=== PATIENT | female | born 1975 | race Caucasian/White ===

== ENCOUNTER 2016-06-22 19:19 | Emergency (ER) | payer SELFPAY ==
[~2016-06-22] VITALS: Ht 157.5 cm; Wt 98.0 kg
[~2016-06-22 19:19] MED LIST: ALOG1TAB7 PO; BUTA1CAP29 PO; DULO20CA PO; LISI10TA2 PO; METF500T4 PO; ONDA4TAB7 PO; PRAV20TA2 PO
--- NOTE | 2016-06-22 19:55 | PHYS DOC ---
Past Medical History Past Medical History: Depression, Diabetes-Type II, High Cholesterol, Hypertension Additional Past Medical Histor: Nerve Damage Past Surgical History: Other Additional Past Surgical Histo: "INTERNAL HEART MONITOR" Alcohol Use: None Drug Use: None Adult General Chief Complaint Chief Complaint: NAUSEA/VOMITING/DIARRHA HPI HPI Patient is a 40 year old female who presents with nausea/vomiting/diarrhea. Patient reports symptoms started this morning. She estimates she has vomited and had diarrhea a couple dozen times over the course the day. She also reports some aching in her back and decreased urine production. No significant abdominal pain, but is uncomfortable from the repeated vomiting and diarrhea. She denies fever. She has tried Zofran (vomited right after taking it) at home as well as Imodium with insufficient relief. Review of Systems Review of Systems Constitutional: Denies fever or chills Eyes: Denies change in visual acuity or eye pain HENT: Denies nasal congestion or sore throat Respiratory: Denies cough or shortness of breath Cardiovascular: Denies chest pain GI: Nausea, vomiting, diarrhea. Denies abdominal pain : Decreased urine output. Denies dysuria or hematuria Musculoskeletal: Back aching Integument: Denies rash or skin lesions Neurologic: Denies headache, focal weakness or sensory changes Current Medications Current Medications Current Medications Medications (Trade) Dose Ordered Sig/Akira Start Time Stop Time Status Last Admin Dose Admin Famotidine (Pepcid) 20 mg 1X ONCE 06/22/16 20:30 06/22/16 20:31 DC 06/22/16 20:13 20 MG Ondansetron HCl (Zofran) 4 mg 1X ONCE 06/22/16 20:30 06/22/16 20:31 DC 06/22/16 20:14 4 MG Ondansetron HCl 4 mg 4 mg 1X ONCE 06/22/16 21:45 06/22/16 21:47 DC 06/22/16 21:45 4 MG Sodium Chloride (Iv Sodium Chloride 0.9% 1000ml Bag) 1,000 ml @ 1,000 mls/hr 1X ONCE 06/22/16 21:45 06/22/16 22:44 DC 06/22/16 21:45 1,000 MLS/HR Allergies Allergies Allergies Coded Allergies Type Severity Reaction Last Updated Verified latex Allergy Intermediate rash 07/04/13 Yes promethazine Allergy Intermediate vein gets rock hard 07/16/15 Yes codeine Adverse Reaction Mild "intensifies pain" 07/16/15 Yes Physical Exam Physical Exam Constitutional: Well developed, well nourished, no acute distress, non-toxic appearance HENT: Normocephalic, atraumatic, bilateral external ears normal Eyes: EOMI, conjunctiva normal, no discharge Neck: Normal range of motion, no stridor Cardiovascular: Tachycardic, regular rhythm, no murmur Lungs & Thorax: Bilateral breath sounds clear to auscultation Abdomen: Bowel sounds normal, soft, non-distended, no focal TTP, no rebound or guarding Skin: Warm, dry, no erythema, no rash Back: No point tenderness, no skin lesion or deformity Extremities: No obvious deformity, no edema Neurologic: Alert and oriented X 3, no gross deficits noted Psychologic: Affect normal, judgement normal, mood normal Current Patient Data Vital Signs Vital Signs Date Time Temp Pulse Resp B/P Pulse Ox O2 Delivery O2 Flow Rate FiO2 06/22/16 23:00 110 123/79 95 Room Air 06/22/16 19:40 99.1 18 99.1 Lab Values Laboratory Tests Test 06/22/16 19:30 06/22/16 20:45 Urine Collection Type Unknown Urine Color Yellow Urine Clarity Clear Urine pH 5.5 Urine Specific [place] >=1.030 Urine Protein 30mg/dL (NEG-TRACE) Urine Glucose (UA) >=1000mg/dL (NEG) Urine Ketones (Stick) 15mg/dL (NEG) Urine Blood Negative (NEG) Urine Nitrite Negative (NEG) Urine Bilirubin Negative (NEG) Urine Urobilinogen Dipstick 0.2mg/dL (0.2 mg/dL) Urine Leukocyte Esterase Negative (NEG) Urine RBC 0/HPF (0-2) Urine WBC 1-4/HPF (0-4) Urine Squamous Epithelial Cells Mod/LPF Urine Bacteria 0/HPF (0-FEW) Urine Mucus Slight/LPF Urine Yeast Present/HPF White Blood Count 6.3x10^3/uL (4.0-11.0) Red Blood Count 5.49x10^6/uL (3.50-5.40) H Hemoglobin 14.0g/dL (12.0-15.5) Hematocrit 43.3% (36.0-47.0) Mean Corpuscular Volume 79fL (79-100) Mean Corpuscular Hemoglobin 26pg (25-35) Mean Corpuscular Hemoglobin Concent 32g/dL (31-37) Red Cell Distribution Width 14.2% (11.5-14.5) Platelet Count 241x10^3/uL (140-400) Neutrophils (%) (Auto) 67% (31-73) Lymphocytes (%) (Auto) 21% (24-48) L Monocytes (%) (Auto) 10% (0-9) H Eosinophils (%) (Auto) 2% (0-3) Basophils (%) (Auto) 1% (0-3) Neutrophils # (Auto) 4.3x10^3uL (1.8-7.7) Lymphocytes # (Auto) 1.3x10^3/uL (1.0-4.8) Monocytes # (Auto) 0.6x10^3/uL (0.0-1.1) Eosinophils # (Auto) 0.1x10^3/uL (0.0-0.7) Basophils # (Auto) 0.0x10^3/uL (0.0-0.2) Sodium Level 132mmol/L (136-145) L Potassium Level 3.4mmol/L (3.5-5.1) L Chloride Level 98mmol/L (98-107) Carbon Dioxide Level 23mmol/L (21-32) Anion Gap 11 (6-14) Blood Urea Nitrogen 12mg/dL (7-20) Creatinine 0.6mg/dL (0.6-1.0) Estimated GFR (Cockcroft-Gault) 111.3 BUN/Creatinine Ratio 20 (6-20) Glucose Level 357mg/dL (70-99) H Calcium Level 8.4mg/dL (8.5-10.1) L Total Bilirubin 0.3mg/dL (0.2-1.0) Aspartate Amino Transferase (AST) 14U/L (15-37) L Alanine Aminotransferase (ALT) 15U/L (14-59) Alkaline Phosphatase 124U/L (46-116) H Total Protein 7.4g/dL (6.4-8.2) Albumin 2.9g/dL (3.4-5.0) L Albumin/Globulin Ratio 0.6 (1.0-1.7) L Lipase 99U/L (73-393) Laboratory Tests 06/22/16 20:45 Laboratory Tests 06/22/16 20:45 EKG EKG EKG (my read): sinus tachycardia, rate 118, normal axis, no acute ST/T changes Radiology/Procedures Radiology/Procedures [] Course & Med Decision Making Course & Med Decision Making Pertinent Labs and Imaging studies reviewed. (See chart for details) Patient is 40-year-old female who presents with nausea/vomiting/diarrhea. Likely viral gastroenteritis. Will check labs, UA to evaluate. IV fluids, nausea medication, Pepcid ordered for relief of symptoms. Labs notable for mild hyponatremia, hypokalemia. Also has hyperglycemia. Urine is concentrated. Second fluid bolus ordered. Discussed results with patient; as she remains mildly tachycardic, I encouraged her to stay in the hospital for further fluids and monitoring. 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 As she has not had any further emesis or diarrhea in the department, and has been able to tolerate PO, I will discharge her home with prescription for ODT Zofran, instructions for close follow-up, return precautions. Dragon Disclaimer Dragon Disclaimer This electronic medical record was generated, in whole or in part, using a voice recognition dictation system. Departure Departure Impression: Primary Impression: Gastroenteritis Disposition: 01 HOME, SELF-CARE Condition: IMPROVED Referrals: NO PCP (PCP) Patient Instructions: Viral Gastroenteritis Additional Instructions: Thank you for allowing us to provide care today in the Emergency Department. Take the provided medication as directed. Drink plenty of fluids while you are sick, such as watered-down Gatorade. Schedule a follow up appointment with a primary care doctor using the provided contact information. Return promptly to the Emergency Department if you develop any new or concerning symptoms. Scripts Ondansetron (Zofran Odt)4 Mg Tab.rapdis1 Tab SL Q8HRS PRN NAUSEA #15 TAB Prov:TAYNA LUZ MD 06/22/16 TANYA LUZ MD Jun 22, 2016 19:55
[2016-06-22 20:04] LABS: BILIRUBIN,URINE NEGATIVE (NEG); GLUCOSE,URINE >=1000 mg/dL (NEG); NITRITE,URINE NEGATIVE (NEG); PH,URINE 5.5; PROTEIN,URINE 30 mg/dL (NEG-TRACE); UROBILINOGEN,URINE 0.2 mg/dL (0.2 mg/dL)
[2016-06-22 20:10] LABS: BACTERIA,URINE 0 /HPF (0-FEW); RBC,URINE 0 /HPF (0-2); SQUAMOUS EPITHELIAL CELL,UR MOD /LPF; YEAST,URINE PRESENT /HPF
[2016-06-22] MEDS ORDERED: ONDANSETRON PF 4 MG/2 ML VIAL. IV ONE ×2 (20:30→21:45)
[2016-06-22] MEDS ORDERED: FAMOTIDINE 20 MG/2 ML VIAL IVP ONE (20:30)
[2016-06-22] MEDS ORDERED: IV NORMAL SALINE 1000ML BAG 1,000 ML IV SCH (20:30)
[2016-06-22 21:02] LABS: CALCIUM 8.4 mg/dL (8.5-10.1); CREATININE 0.6 mg/dL (0.6-1.0); GFR 111.3; POTASSIUM 3.4 mmol/L (3.5-5.1)
[2016-06-22 21:07] LABS: ALBUMIN 2.9 g/dL (3.4-5.0); ALBUMIN/GLOBULIN RATIO 0.6 (1.0-1.7); TOTAL BILIRUBIN 0.3 mg/dL (0.2-1.0); TOTAL PROTEIN 7.4 g/dL (6.4-8.2)
[2016-06-22 21:08] LABS: BASO % 1 % (0-3); EOS % 2 % (0-3); HEMATOCRIT 43.3 % (36.0-47.0); LYMPH # 1.3 x10^3/uL (1.0-4.8); LYMPH % 21 % (24-48); MEAN CORPUSCULAR HEMOGLOBIN 26 pg (25-35); MEAN CORPUSCULAR HGB CONC 32 g/dL (31-37); MEAN CORPUSCULAR VOLUME 79 fL (79-100); MONO % 10 % (0-9); NEUT % 67 % (31-73); PLATELET COUNT 241 x10^3/uL (140-400); RED BLOOD COUNT 5.49 x10^6/uL (3.50-5.40); RED CELL DISTRIBUTION WIDTH 14.2 % (11.5-14.5); WHITE BLOOD COUNT 6.3 x10^3/uL (4.0-11.0)
[2016-06-22] MEDS ORDERED: IV NORMAL SALINE 1000ML BAG 1,000 ML IV ONE (21:45)
[2016-06-22 23:00] VITALS: BP 123/79
[2016-06-22] MEDS ORDERED: ONDA4TAB10 SL (23:14)
--- NOTE | 2016-06-23 06:13 | EKG ---
[facility] [address] [place] [address] Test Date: 2016-06-22 Test Time: 19:40:35 Pat Name: ARIEL GARCIA Department: Room: Gender: F H[employer] R Tech: : [id number] Requested By: TANYA LUZ Order Number: [id number] Reading MD: Madison Chin Measurements Intervals [place] Rate: 118 P: 40 TX: 134 QRS: 19 QRSD: 90 T: 62 QT: 334 QTc: 470 Interpretive Statements SINUS TACHYCARDIA LEFT ATRIAL ABNORMALITY Electronically Signed On 06-25-2016 10:43:55 CDT by Madison Chin
== END 2016-06-22 23:27 | disposition home or self-care (01) ==
LOC: ER 19:19
DX: K52.9 Noninfective gastroenteritis and colitis, unspecified (principal); E11.9 Type 2 diabetes mellitus without complications; E78.00 Pure hypercholesterolemia, unspecified; I10 Essential (primary) hypertension; Z88.5 Allergy status to narcotic agent; Z88.8 Allergy status to other drugs, medicaments and biological substances; Z91.040 Latex allergy status
CPT/HCPCS: 36415; 80053; 81001; 81025; 83690; 85027; 93005; 96361; 96374; 96375; 96376; 99285; J2405; J7030; S0028

== ENCOUNTER 2017-06-11 20:00 | Emergency (ER) | payer SELFPAY ==
[2017-06-11] MEDS: LIDOCAINE WITH 8.4% SOD BICARB 3 ML DISP.SYRIN. INJ (20:30)
== END 2017-06-11 21:38 | disposition home or self-care (01) ==
LOC: ER 20:00
DX: L02.811 Cutaneous abscess of head [any part, except face] (principal); L03.811 Cellulitis of head [any part, except face]; F32.9 Major depressive disorder, single episode, unspecified; E11.9 Type 2 diabetes mellitus without complications; E78.00 Pure hypercholesterolemia, unspecified; I10 Essential (primary) hypertension; Z91.040 Latex allergy status; Z88.5 Allergy status to narcotic agent; Z88.8 Allergy status to other drugs, medicaments and biological substances
CPT/HCPCS: 10060; 99283

== ENCOUNTER 2017-10-04 18:53 | Emergency (ER) | payer OTHER ==
[2017-10-04] MEDS: ALBUTEROL SULFATE 2.5 MG/3 ML NEBU. NEB (19:56)
== END 2017-10-04 20:40 | disposition home or self-care (01) ==
LOC: ER 20:40
DX: R05 Cough (principal); R09.81 Nasal congestion; E78.00 Pure hypercholesterolemia, unspecified; I10 Essential (primary) hypertension; E11.9 Type 2 diabetes mellitus without complications; Z91.040 Latex allergy status; Z88.5 Allergy status to narcotic agent; Z88.4 Allergy status to anesthetic agent
CPT/HCPCS: 94640; 99283-25; J7613

== ENCOUNTER → 2018-08-11 | Outpatient (CLI) | payer BC ==
[2018-04-12 10:53] VITALS: BP 116/56
[~2018-08-11] MED LIST changes: +ATOR10TA60 PO; +BENZ100C PO; +INSU100I13 SQ; +INSU100V SQ; +LABE200T4 PO; +METF500T16 PO; -METF500T4 PO; +ONDA4TAB10 SL; +SULF1TAB23 PO; +TRAM50TA PO
--- NOTE | 2018-08-11 12:53 | RAD ---
Radionuclide gastric emptying study, 08/11/2018: HISTORY: Chronic nausea and vomiting The study was performed utilizing a solid test meal radiolabeled with 2 mCi of technetium 99m sulfur colloid. The following gastric retention values were obtained: 1 hour-36 percent 2 hours-5 percent 3 hours-3 percent A gastric T1/2 was also calculated at 43 minutes, which is in the normal range. IMPRESSION: Normal gastric emptying time Electronically signed by: Ambrocio Estes MD (08/11/2018 12:50 PM) [facility]
== END | disposition home or self-care (01) ==
LOC: NM 08:40
PROVIDERS: ATTEND Internal Medicine Gastroenterology
DX: R11.2 Nausea with vomiting, unspecified (principal)
CPT/HCPCS: 78264; A9541

== ENCOUNTER → 2018-08-18 | Day surgery (SDC) | payer BC ==
[~2018-08-18] MED LIST changes: +IV RINGERS,LACTATED 1000ML 1,000 ML IV SCH; +LIDOCAINE 2% PF 5 ML VIAL. ONE; +PROPOFOL 20 ML IV ONE
[2018-08-18 07:20] LABS: U PREG PATIENT NEGATIVE (NEG)
[2018-08-18 07:37] VITALS: BP 114/72
== END | disposition home or self-care (01) ==
LOC: ENDOS 05:44
PROVIDERS: ATTEND Internal Medicine Gastroenterology
DX: K29.50 Unspecified chronic gastritis without bleeding (principal); Z91.040 Latex allergy status; Z88.5 Allergy status to narcotic agent; Z88.8 Allergy status to other drugs, medicaments and biological substances; Z79.899 Other long term (current) drug therapy
CPT/HCPCS: 43235; 81025; J2001; J2704

== ENCOUNTER 2019-03-14 11:16 | Emergency (ER) | payer BC, OTHER ==
[~2019-03-14] VITALS: Ht 157.5 cm; Wt 96.2 kg
[~2019-03-14 11:16] MED LIST changes: -INSU100V SQ; +INSU100V6 SQ; -IV RINGERS,LACTATED 1000ML 1,000 ML IV SCH; -LIDOCAINE 2% PF 5 ML VIAL. ONE; -PROPOFOL 20 ML IV ONE
[2019-03-14 12:00] VITALS: BP 130/82
[2019-03-14] MEDS ORDERED: METH4TAB2 PO (12:15)
[2019-03-14] MEDS ORDERED: BENZ100C PO (12:15)
[2019-03-14] MEDS ORDERED: AZIT250T6 PO (12:15)
[2019-03-14] MEDS ORDERED: ALBU2.5V8 INH (12:16)
--- NOTE | 2019-03-14 12:20 | PHYS DOC ---
Past Medical History Past Medical History: Diabetes-Type II, Hypertension Additional Past Medical Histor: Nerve Damage Past Surgical History: No Surgical History Additional Past Surgical Histo: "INTERNAL HEART MONITOR" Alcohol Use: None Drug Use: None Adult General Chief Complaint Chief Complaint: Congestion HPI HPI Patient is a 43 year old Female who presents with cough, shortness of air, headache, nasal congestion for the last 4 days. Patient states last night she often so hard that she vomited. Patient states she is keeping fluids and food down has not vomited or had diarrhea today. Patient rates her pain a 3 out of 10 in her head. Review of Systems Review of Systems Constitutional: fever or chills [] HENT: nasal congestion or sore throat [] Respiratory: cough or shortness of breath [] Cardiovascular: Pain with coughing GI: Denies abdominal pain. + nausea, +vomiting with cough, denies bloody stools or diarrhea [] All other systems were reviewed and found to be within normal limits, except as documented in this note. Allergies Allergies Allergies Coded Allergies Type Severity Reaction Last Updated Verified latex Allergy Intermediate rash 08/18/18 Yes pimozide Allergy Intermediate Rash 08/18/18 Yes promethazine Allergy Intermediate vein gets rock hard 08/18/18 Yes codeine Adverse Reaction Mild "intensifies pain" 08/18/18 Yes Physical Exam Physical Exam Constitutional: Well developed, well nourished, no acute distress, non-toxic appearance. [] HENT: Normocephalic, atraumatic, bilateral external ears normal, oropharynx moist, no oral exudates, nose normal. Maxillary sinus tenderness. Throat red without swelling or exudates. [] Eyes: PERRLA, EOMI, conjunctiva normal, no discharge. [] Neck: Normal range of motion, no tenderness, supple, no stridor. [] Cardiovascular:Heart rate regular rhythm, no murmur [] Lungs & Thorax: Bilateral breath sounds clear to auscultation [] Abdomen: Bowel sounds normal, soft, no tenderness, no masses, no pulsatile masses. [] Skin: Warm, dry, no erythema, no rash. [] Back: No tenderness, no CVA tenderness. [] Extremities: No tenderness, no cyanosis, no clubbing, ROM intact, no edema. [] Neurologic: Alert and oriented X 3, normal motor function, normal sensory function, no focal deficits noted. [] Psychologic: Affect normal, judgement normal, mood normal. [] Current Patient Data Vital Signs Vital Signs Date Time Temp Pulse Resp B/P (MAP) Pulse Ox O2 Delivery O2 Flow Rate FiO2 03/14/19 12:00 98.2 116 18 130/82 (98) 97 Room Air 98.2 Lab Values Laboratory Tests Test 03/14/19 12:09 Influenza Type A Antigen Negative (NEGATIVE) Influenza Type B Antigen Negative (NEGATIVE) EKG EKG [] Radiology/Procedures Radiology/Procedures [] Course & Med Decision Making Course & Med Decision Making Maxillary sinus tenderness with palpation. Abdomen soft and nontender. Throat is red but there is no exudates or swelling. Bilateral tympanic are pearly white. Lungs are clear to auscultation all lobes. Patient denies fevers but states she gets chills. Patient states she's been taking DayQuil and NyQuil for her symptoms. She denies medical history. Patient she has chest pain with coughing. Patient denies abdominal pain, diarrhea, fever, dizziness, syncope, visual changes, weakness, body aches, ear pain, throat pain. Dragon Disclaimer Dragon Disclaimer This electronic medical record was generated, in whole or in part, using a voice recognition dictation system. Departure Departure Impression: Primary Impression: Nasal congestion Additional Impressions: Cough Headache Disposition: 01 HOME, SELF-CARE Condition: STABLE Referrals: GRIS JOSHUA MD (PCP) Patient Instructions: Upper Respiratory Infection, Adult Additional Instructions: Follow-up with her primary care provider. Take medications as prescribed. Drink plenty of fluids. Take ibuprofen or Tylenol for pain. Scripts Albuterol Sulfate (Proair Hfa) 8.5 Gm Hfa.aer.ad 1 PUFF INH PRN Q4HRS PRN for SHORTNESS OF BREATH, #1 INHALER Prov: SANJANA MARCOS HOME SUPPORT WORKER 03/14/19 Benzonatate (TESSALON PERLE) 100 Mg Capsule 1 CAP PO TID, #30 CAP Prov: SANJANA MARCOS HOME SUPPORT WORKER 03/14/19 Methylprednisolone (MEDROL) 4 Mg Tab.ds.pk 1 PKG PO UD, #1 PKG Prov: BAFSANJANA POLANCO HOME SUPPORT WORKER 03/14/19 Azithromycin (AZITHROMYCIN TABLET) 250 Mg Tablet 1 PKG PO UD for 5 Days, #6 TAB 0 Refills 2 the first day followed by 1 for days 2-5 Prov: SANJANA MARCOS APRN 03/14/19 Problem Qualifiers Additional Impressions: Headache Headache type: unspecified Headache chronicity pattern: acute headache Intractability: not intractable Qualified Codes: R51 - Headache SANJANA MARCOS APRN Mar 14, 2019 12:20
[2019-03-14 13:01] LABS: INFLUENZA A PATIENT NEGATIVE (NEGATIVE); INFLUENZA B PATIENT NEGATIVE (NEGATIVE)
== END 2019-03-14 13:27 | disposition home or self-care (01) ==
LOC: ER 11:16
DX: R05 Cough (principal); R06.02 Shortness of breath; R51 Headache; I10 Essential (primary) hypertension; E11.9 Type 2 diabetes mellitus without complications; Z91.040 Latex allergy status; Z88.5 Allergy status to narcotic agent; Z88.8 Allergy status to other drugs, medicaments and biological substances
CPT/HCPCS: 87804; 99284

== ENCOUNTER 2021-07-30 15:46 | Emergency (ER) | payer BC, OTHER ==
[~2021-07-30] VITALS: Ht 157.5 cm; Wt 86.9 kg
[~2021-07-30 15:46] MED LIST changes: +ALBU2.5V8 INH; +AZIT250T6 PO; +LISI10TA16 PO; -LISI10TA2 PO; +METH4TAB2 PO
--- NOTE | 2021-07-30 16:16 | PHYS DOC ---
Past Medical History Past Medical History: Diabetes-Type II, Hypertension Additional Past Medical Histor: Nerve Damage Past Surgical History: No Surgical History Additional Past Surgical Histo: "INTERNAL HEART MONITOR" Smoking Status: Never Smoker Alcohol Use: None Drug Use: None General Adult EDM: Chief Complaint: COUGH HPI: HPI: Patient is a 45 year old female with a history of diabetes type 2, hypertension, presenting to the ED today complaining of a productive cough, nasal congestion, symptoms of been going on for 2 days. Patient denies any fever, shortness of breath, chest pain. Review of Systems: Review of Systems: Constitutional: Denies fever or chills. [] Eyes: Denies change in visual acuity. [] HENT: Reports nasal congestion, denies sore throat. [] Respiratory: Reports cough, denies shortness of breath. [] Cardiovascular: Denies chest pain or edema. [] GI: Denies abdominal pain, nausea, vomiting, bloody stools or diarrhea. [] : Denies dysuria. [] Musculoskeletal: Denies back pain or joint pain. [] Integument: Denies rash. [] Neurologic: Denies headache, focal weakness or sensory changes. [] Psychiatric: Denies depression or anxiety. [] Heart Score: C/O Chest Pain: N/A Risk Factors: Risk Factors: DM, Current or recent (<one month) smoker, HTN, HLP, family history of CAD, obesity. Risk Scores: Score 0 - 3: 2.5% MACE over next 6 weeks - Discharge Home Score 4 - 6: 20.3% MACE over next 6 weeks - Admit for Clinical Observation Score 7 - 10: 72.7% MACE over next 6 weeks - Early Invasive Strategies Allergies: Allergies: Allergies Coded Allergies Type Severity Reaction Last Updated Verified latex Allergy Intermediate rash 08/18/18 Yes pimozide Allergy Intermediate Rash 08/18/18 Yes promethazine Allergy Intermediate vein gets rock hard 08/18/18 Yes codeine Adverse Reaction Mild "intensifies pain" 08/18/18 Yes Physical Exam: PE: Constitutional: Well developed, well nourished, no acute distress, non-toxic appearance. [] HENT: Normocephalic, atraumatic, bilateral external ears normal, oropharynx moist, no oral exudates, nose normal. [] Eyes: PERRLA, EOMI, conjunctiva normal, no discharge. [] Neck: Normal range of motion, no tenderness, supple, no stridor. [] Cardiovascular:Heart rate regular rhythm, no murmur [] Lungs & Thorax: Bilateral breath sounds clear to auscultation [] Abdomen: Bowel sounds normal, soft, no tenderness, no masses, no pulsatile masses. [] Skin: Warm, dry, no erythema, no rash. [] Back: No tenderness, no CVA tenderness. [] Extremities: No tenderness, no cyanosis, no clubbing, ROM intact, no edema. [] Neurologic: Alert and oriented X 3, normal motor function, normal sensory function, no focal deficits noted. [] Psychologic: Affect normal, judgement normal, mood normal. [] EKG: EKG: [] Radiology/Procedures: Radiology/Procedures: []PROCEDURE: CHEST AP ONLY XR CHEST 1V History: Reason: cough / Spl. Instructions: / History: Comparison: April 10, 2018 Findings: No consolidation or pleural effusion. Normal heart size. No pneumothorax. Impression: 1. No acute cardiopulmonary process. Electronically signed by: Mark Barrett DO (07/30/2021 4:22 PM) [facility] DICTATED and SIGNED BY: MARK BARRETT DO DATE: 07/30/211620 Course & Med Decision Making: Course & Med Decision Making Pertinent Labs and Imaging studies reviewed. (See chart for details) This a 45-year-old female patient presented to the ED today complaining of cough, nasal congestion, symptoms for 2 days. Patient is afebrile. O2 sats 98% and above on room air. Chest x-ray interpreted by radiologist is negative for any acute findings. Negative rapid influenza A or B, negative COVID test. Discharge to home with albuterol inhaler, Tessalon Perles. Follow-up with primary care doctor. Cassie Disclaimer: Cassie Disclaimer: This electronic medical record was generated, in whole or in part, using a voice recognition dictation system. Departure Departure Impression: Primary Impression: Cough Additional Impression: Upper respiratory infection Qualified Codes: J06.9 - Acute upper respiratory infection, unspecified Disposition: HOME / SELF CARE / HOMELESS Condition: STABLE Referrals: GRIS JOSHUA MD (PCP) follow up with your new doctor as soon as you can Patient Instructions: Cough, Adult, [id number], Upper Respiratory Infection, Adult, [id number] Additional Instructions: You were evaluated in the emergency room for cough and nasal congestion. Your chest x-ray is negative for any acute findings, your rapid influenza test is negative, your rapid COVID test is negative. Please use the prescribed medications as ordered. Please follow-up with your new doctor as soon as you can. Scripts Albuterol Sulfate (Proair Hfa) 8.5 Gm Hfa.aer.ad 2 PUFF IH PRN Q4-6HRS PRN for wheezing for 21 Days, #1 INHALER 0 Refills Prov: BETH KIMBROUGH APRN 07/30/21 Benzonatate (BENZONATATE) 100 Mg Capsule 1 CAP PO TID, #30 CAP Prov: BETH KIMBROUGH APRN 07/30/21 BETH KIMBROUGH APRN Jul 30, 2021 16:16
--- NOTE | 2021-07-30 16:24 | RAD ---
XR CHEST 1V History: Reason: cough / Spl. Instructions: / History: Comparison: April 10, 2018 Findings: No consolidation or pleural effusion. Normal heart size. No pneumothorax. Impression: 1. No acute cardiopulmonary process. Electronically signed by: Mark Barahona DO (07/30/2021 4:22 PM) [facility]
[2021-07-30 17:05] LABS: INFLUENZA A PATIENT NEGATIVE (NEGATIVE); INFLUENZA B PATIENT NEGATIVE (NEGATIVE)
[2021-07-30] MEDS ORDERED: ALBU2.5V8 IH (17:16)
[2021-07-30] MEDS ORDERED: BENZ-8 PO (17:16)
[2021-07-30 17:31] VITALS: BP 152/62
--- NOTE | 2021-08-01 17:14 | NUR ---
IP: Informed pt of negative covid test. Pt verbalized understanding.
== END 2021-07-30 17:29 | disposition home or self-care (01) ==
LOC: ER 15:46
DX: R05.9 Cough, unspecified (principal); Z20.822 Contact with and (suspected) exposure to COVID-19; E11.9 Type 2 diabetes mellitus without complications; I10 Essential (primary) hypertension; J06.9 Acute upper respiratory infection, unspecified; Z88.5 Allergy status to narcotic agent; Z91.040 Latex allergy status; Z88.8 Allergy status to other drugs, medicaments and biological substances
CPT/HCPCS: 71045; 87428; 99284; C9803; U0003